=== PATIENT | male | born 1995 | race Caucasian/White ===

== ENCOUNTER 2021-06-02 21:19 | Emergency (ER) | payer OTHER ==
[~2021-06-02] VITALS: Ht 175 cm; Wt 89.4 kg
--- OUTSIDE RECORDS SUMMARY | 2021-06-02 21:25 | XMS REPORT | Clinical Summary ---
Author Author [facility] Organization [facility] Address Unknown Phone Unavailable Care Team Providers Care Horse Doctor Name Role Phone No Pcp, Na PCP Unavailable Source Comments Some departments are not documenting in the electronic medical record. If you d o not see the information that you expected, contact Release of Information in [facility] Information Management department at [phone] for further assistan ce in locating additional records.[facility] Allergies No known active allergies Medications End Date Status Medication Sig Dispensed Refills Start Date Active oxyCODONE/acetaminophen Take one 15 tablet 0 (PERCOCET; ENDOCET; tablet by 8 ROXICET) 5/325 mg tablet mouth every 4 hours as needed for Pain Active ondansetron (ZOFRAN) 4 mg Take one 15 tablet 0 tablet tablet by 8 mouth every 8 hours as needed for Nausea. Active Problems Not on file Social History Date Tobacco Use Types Packs/Day Years Used Never Assessed Sex Assigned at Date Recorded Not on file Last Filed Vital Signs Reading Time Taken Comments Vital Sign 131/73 05/03/2018 11:02 PM [employer] Blood Pressure - - Pulse 36.6 C (97.8 F) 05/03/2018 5:34 PM [employer] Temperature - - Respiratory Rate 100% 05/03/2018 11:02 PM [employer] Oxygen Saturation - - Inhaled Oxygen Concentration 81.6 kg (180 lb) 05/03/2018 5:34 PM [employer] Weight 175.3 cm (5' 9") 05/03/2018 5:34 PM [employer] Height 26.58 05/03/2018 5:34 PM [employer] Body Mass Index Plan of Treatment Health Maintenance Due Date Last Done Comments HPV VACCINES (1 - Male 2008 2-dose series) HIV SCREENING 2012 DTAP/TDAP VACCINES (1 - 08/15/2015 Tdap) HEPATITIS C SCREENING 08/15/2015 PHYSICAL (COMPREHENSIVE) 08/15/2015 EXAM INFLUENZA VACCINE 12/20/2020 Results Not on filefrom Last 3 Months Insurance Type Payer Benefit Subscriber ID Effective Phone Address Plan / Dates Group PPO BCBS ED BCBS ED [id number] 2012-P [phone] [address] [facility] [id number] [place] [address] Advance Directives Patient Director Data Analytics Explanation Type Date Recorded Advance 05/03/2018 5:21 PM Directive/DPOA Care Teams Start Date End Date Horse Doctor Relationship Specialty 05/03/18 No Pcp, Na PCP - General
[2021-06-02 21:33] LABS: BILIRUBIN,URINE NEGATIVE (NEGATIVE); CLARITY,URINE CLEAR; COLOR,URINE YELLOW; GLUCOSE, URINE (UA) NEGATIVE (NEGATIVE); KETONES,URINE 2+ (NEGATIVE); LEUKOCYTE ESTERASE ,URINE NEGATIVE (NEGATIVE); NITRITE,URINE NEGATIVE (NEGATIVE); PROTEIN,URINE NEGATIVE (NEGATIVE)
[2021-06-02] MEDS ORDERED: morphine INJ 10 MG/ML 1ML (SYR OR VIAL) IVP STA (21:35)
--- NOTE | 2021-06-02 21:42 | ED Abdominal Pain ---
General Stated Complaint: NAUSEA,VOMITTING,LOWER RIGHT SIDE BACK PAIN Source of Information: Patient Exam Limitations: No Limitations History of Present Illness Date Seen by Provider: Jun 02, 2021 Time Seen by Provider: 21:25 Initial Comments Patient to the ER by private conveyance from home with chief complaint of pain in his right flank radiating down to his right groin since about 11:00 this morning. He tried taking some ibuprofen but vomited it back up. He feels nauseated. He does not have anything for nausea. 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 He used to follow-up with Dr. Wolf, nephrology at [facility]. 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 No fevers chills cough shortness o f air diarrhea. No known sick contacts. No other abdominal surgeries. His pain is constant, sharp and unrelenting. Worse with movement. No history of kidney stones. He has been told in the past on imaging he had some sludge in his kidneys and has never had interstitial nephritis mentioned. He knows he has a history of kidney disease but cannot quantify it. He does not have a primary care provider and does not take any medicines routinely. Allergies and Home Medications Allergies Coded Allergies: No Known Drug Allergies (Unverified , 06/02/21) Patient Home Medication List Home Medication List Reviewed: Yes Cephalexin (Cephalexin) 500 Mg Tablet, 500 MG PO BID Prescribed by: ARIEL LUTHER on 06/02/212304 Hydrocodone/Acetaminophen (Hydrocodone-Acetamin 5-325 mg) 1 Each Tablet, 1-2 TAB PO Q4H PRN for PAIN-MODERATE (5-7) Prescribed by: ARIEL LUTHER on 06/02/212304 Ondansetron (Ondansetron Odt) 4 Mg Tab.rapdis, 4 MG PO Q6H PRN for NAUSEA/VOMITING Prescribed by: ARIEL LUTHER on 06/02/212304 Review of Systems Review of Systems Constitutional: No chills, No diaphoresis EENTM: No Blurred Vision, No Double Vision Respiratory: Denies Cough, Denies Shortness of Air Cardiovascular: Denies Chest Pain, Denies Lightheadedness Gastrointestinal: See HPI, Abdominal Pain; Denies Constipated, Denies Diarrhea; Nausea, Poor Fluid Intake, Vomiting Genitourinary: Denies Burning, Denies Discharge, Denies Drainage; Flank Pain (r) Musculoskeletal: back pain (Right flank); No joint pain, No neck pain All Other Systems Reviewed Negative Unless Noted: Yes Past Nvzfeot-Dyievz-Gepfsj Hx Patient Social History Tobacco Use?: No Use of E-Cig and/or Vaping dev: No Substance use?: No Physical Exam Vital Signs Vital Signs - First Documented 06/02/21 21:25 Temp 36.7 Pulse 69 Resp 17 B/P (MAP) 159/89 (112) Pulse Ox 98 O2 Delivery Room Air Capillary Refill : Height/Weight/BMI Height: '" Weight: lbs. oz. kg; BMI Method: General Appearance: WD/WN, mild distress HEENT: PERRL/EOMI, TMs normal, pharynx normal Neck: full range of motion, supple, normal inspection Respiratory: lungs clear, normal breath sounds, no respiratory distress, no accessory muscle use Cardiovascular: normal peripheral pulses, regular rate, rhythm Peripheral Pulses: 2+ Radial Pulses (R), 2+ Radial Pulses (L) Gastrointestinal: normal bowel sounds, soft, no organomegaly, tenderness (Right groin with some rebound tenderness but no Rovsing sign, heeltap or other mesenteric signs) Back: normal inspection, no vertebral tenderness, CVA tenderness (R) (Tenderness to percussion over right costovertebral angle) Neurologic/Psychiatric: alert, normal mood/affect, oriented x 3 Skin: normal color, warm/dry Progress/Results/Core Measures Results/Orders Lab Results Laboratory Tests Test 06/02/21 21:25 06/02/21 21:34 Range/Units Urine Color YELLOW Urine Clarity CLEAR Urine pH 6.0 5-9 Urine Specific [place] >=1.030 1.016-1.022 Urine Protein NEGATIVE NEGATIVE Urine Glucose (UA) NEGATIVE NEGATIVE Urine Ketones 2+ H NEGATIVE Urine Nitrite NEGATIVE NEGATIVE Urine Bilirubin NEGATIVE NEGATIVE Urine Urobilinogen 0.2 < = 1.0 MG/DL Urine Leukocyte Esterase NEGATIVE NEGATIVE Urine RBC (Auto) 2+ H NEGATIVE Urine RBC 0-2 /HPF Urine WBC RARE /HPF Urine Squamous Epithelial Cells NONE /HPF Urine Crystals NONE /LPF Urine Bacteria NEGATIVE /HPF Urine Casts NONE /LPF Urine Mucus SMALL H /LPF Urine Culture Indicated NO White Blood Count 14.6 H 4.3-11.0 10^3/uL Red Blood Count 4.95 4.30-5.52 10^6/uL Hemoglobin 14.5 13.3-17.7 g/dL Hematocrit 43 40-54 % Mean Corpuscular Volume 87 80-99 fL Mean Corpuscular Hemoglobin 29 25-34 pg Mean Corpuscular Hemoglobin Concent 34 32-36 g/dL Red Cell Distribution Width 12.0 10.0-14.5 % Platelet Count 234 130-400 10^3/uL Mean Platelet Volume 9.7 9.0-12.2 fL Immature Granulocyte % (Auto) 0 % Neutrophils (%) (Auto) 81 H 42-75 % Lymphocytes (%) (Auto) 11 L 12-44 % Monocytes (%) (Auto) 6 0-12 % Eosinophils (%) (Auto) 1 0-10 % Basophils (%) (Auto) 0 0-10 % Neutrophils # (Auto) 11.9 H 1.8-7.8 X 10^3 Lymphocytes # (Auto) 1.7 1.0-4.0 X 10^3 Monocytes # (Auto) 0.9 0.0-1.0 X 10^3 Eosinophils # (Auto) 0.1 0.0-0.3 10^3/uL Basophils # (Auto) 0.0 0.0-0.1 10^3/uL Immature Granulocyte # (Auto) 0.0 0.0-0.1 10^3/uL Neutrophils % (Manual) 75 % Lymphocytes % (Manual) 14 % Monocytes % (Manual) 9 % Eosinophils % (Manual) 0 % Basophils % (Manual) 0 % Band Neutrophils 2 % Sodium Level 136 135-145 MMOL/L Potassium Level 4.0 3.6-5.0 MMOL/L Chloride Level 100 98-107 MMOL/L Carbon Dioxide Level 23 21-32 MMOL/L Anion Gap 13 5-14 MMOL/L Blood Urea Nitrogen 14 7-18 MG/DL Creatinine 1.23 0.60-1.30 MG/DL Estimat Glomerular Filtration Rate 73 BUN/Creatinine Ratio 11 Glucose Level 98 70-105 MG/DL Calcium Level 9.1 8.5-10.1 MG/DL Corrected Calcium 8.5-10.1 MG/DL Magnesium Level 2.0 1.6-2.4 MG/DL Total Bilirubin 0.7 0.1-1.0 MG/DL Aspartate Amino Transf (AST/SGOT) 20 5-34 U/L Alanine Aminotransferase (ALT/SGPT) 16 0-55 U/L Alkaline Phosphatase 40 40-136 U/L C-Reactive Protein < 0.30 <0.50 MG/DL Total Protein 6.7 6.4-8.2 GM/DL Albumin 4.7 H 3.2-4.5 GM/DL My Orders Orders - ARIEL LUTHER Ua Culture If Indicated (06/02/21 21:26) Cbc With Automated Diff (06/02/21 21:34) Comprehensive Metabolic Panel (06/02/21 21:34) Crp Fs (06/02/21 21:34) Ct Abdomen/Pelvis W (06/02/21 21:34) Ondansetron Injection (Zofran Injectio (06/02/21 21:45) Morphine Injection (Morphine Injection (06/02/21 21:35) Ed Iv/Invasive Line Start (06/02/21 21:35) Ns Iv 1000 Ml (Sodium Chloride 0.9%) (06/02/21 21:45) Magnesium (06/02/21 21:35) Iohexol Injection (Omnipaque 350 Mg/Ml 1 (06/02/21 21:45) Received Contrast (Hold Metformin- Contr (06/02/21 21:45) Sodium Chloride Flush (Catheter Flush Sy (06/02/21 21:45) Ns (Ivpb) (Sodium Chloride 0.9% Ivpb Bag (06/02/21 21:45) Manual Differential (06/02/21 21:34) Ceftriaxone 1 Gm Pre-Mix (Rocephin 1 Gm (06/02/21 23:15) Abdomen (Kub) 1 View (06/02/21 23:01) Rx-Hydrocodone/Apap 5-325 Mg (Rx-Vicodin (06/02/21 23:15) Medications Given in ED Current Medications Medications Dose Ordered Sig/Tracy Route Start Time Stop Time Status Last Admin Dose Admin Acetaminophen/ Hydrocodone Bitart 1 ea Q4H PRN PO 06/02/21 23:15 06/02/21 23:45 DC 06/02/21 23:25 1 EA Ceftriaxone Sodium/Dextrose 50 ml @ 100 mls/hr ONCE ONCE IV 06/02/21 23:15 06/02/21 23:45 DC 06/02/21 23:14 100 MLS/HR Iohexol 100 ml ONCE ONCE IV 06/02/21 21:45 06/02/21 22:03 DC 06/02/21 22:24 100 ML Ondansetron HCl 8 mg ONCE ONCE IVP 06/02/21 21:45 06/02/21 21:46 DC 06/02/21 21:42 8 MG Sodium Chloride 10 ml NEEDED PRN IV 06/02/21 21:45 06/02/21 23:45 DC 06/02/21 22:24 10 ML Sodium Chloride 100 ml ONCE ONCE IV 06/02/21 21:45 06/02/21 22:03 DC 06/02/21 22:24 80 ML Vital Signs/I&O 06/02/21 06/02/21 06/02/21 21:25 22:25 23:43 Temp 36.7 Pulse 69 81 73 Resp 17 15 17 B/P (MAP) 159/89 (112) 152/75 142/92 Pulse Ox 98 100 98 O2 Delivery Room Air Room Air Room Air Progress Progress Note #1: Time: 21:42 Progress Note 8 of Zofran, 2 of morphine and a liter of fluids. If we can obtain a CT with IV contrast to observe his ureters and kidney that would be helpful. This would also help us rule out appendicitis. Patient has not been here before to compare any labs or imaging. Progress Note #2: Time: 22:55 Progress Note Patient's nausea is gone. His pain is down to a 5 out of 10 which is a significant decrease. Vital signs are still aseptic. Plan to give him a gram of Rocephin based on his elevated white count with a left shift and put him on Keflex for a week. We will have him follow-up with Dr. Bennett this week or early next week to discuss the source of his pain whether that stone seen in the bladder is the problem or if there is some other obstruction to be found in his right ureter. We will send him home with some hydrocodone let him have a dose before he leaves and make sure his pain is under good control before he goes. Diagnostic Imaging Diagonstic Imaging: CT Plain Films/CT/US/NM/MRI: abdomen, pelvis Comments [facility] [place], [place] NAME: HELEN REIS [facility] REC#: [id number] PT STATUS: REG ER : 1995 PHYSICIAN: ARIEL LUTHER MD ADMIT DATE: 06/02/21/ER FS Draft Date of Exam:06/02/21 CT ABDOMEN/PELVIS W PROCEDURE: CT abdomen and pelvis with contrast. TECHNIQUE: Multiple contiguous axial images were obtained through the abdomen and pelvis after administration of intravenous contrast. Auto Exposure Controls were utilized during the CT exam to meet ALARA standards for radiation dose reduction. All CT scans use one or more of the following dose optimizing techniques: automated exposure control, MA and/or KvP adjustment based on patient size and exam type or iterative reconstruction. INDICATION: Right flank and right lower quadrant abdominal pain. Nausea and vomiting. COMPARISON: None. FINDINGS: Included portions of the lung bases are clear. CT ABDOMEN: There is severe right-sided hydroureteronephrosis. No renal or ureteral calculi are seen on either side. However, there is calcification within the gravity dependent portion of the urinary bladder on the left. This measures approximately 5 x 10 mm (image 83, series 3 and image 100, series 5). No renal masses are seen on either side. The adrenal glands, spleen, pancreas and liver have a normal CT appearance. There is no loculated fluid collection, free fluid or free air within the abdomen. No abnormal mesenteric or retroperitoneal adenopathy is seen. Normal appendix cannot be adequately identified, but there is no pericecal inflammation. Small bowel loops are nondistended. Osseous structures show no acute abnormality. CT PELVIS: Again, there is a large calculus within the urinary bladder and severe distention of the distal right ureter. There is no loculated fluid collection, free fluid or free air within the pelvis. No abnormal lymph nodes are identified. Osseous structures show no acute abnormalities. IMPRESSION: Severe right-sided hydroureteronephrosis. Although no calculi are seen within the right renal pelvis or ureter, there is a large calculus within the urinary bladder. Findings could be on the basis of recent passage of ureteral stone. Short interval sonographic follow-up is recommended. Alternatively, correlation with renal Lasix scan could be performed to assess for residual underlying obstruction. This could be performed on a nonemergent basis. Dictated on workstation # [id number] Dict: 06/02/217 Trans: 06/02/21 223 [facility] [id number] Interpreted by: SUHAIL LEUNG MD Electronically signed by: Reviewed: Reviewed by Me Diagonstic Imaging: Xray Plain Films/CT/US/NM/MRI: abdomen, pelvis Comments [facility] [place] [place] NAME: HELEN REIS [facility] REC#: [id number] PT STATUS: DEP ER : 1995 PHYSICIAN: ARIEL LUTHER MD ADMIT DATE: 06/02/21/ER FS Draft Date of Exam:06/02/21 ABDOMEN (KUB) 1 VIEW INDICATION: Bladder calculus. Right-sided hydroureteronephrosis. COMPARISON: CT from earlier the same day FINDINGS: Two frontal radiographic views of the abdomen and pelvis were obtained. There is concentrated contrast within the urinary bladder. As such, urinary bladder calculus seen on previous CT is obscured. Contrast is also seen within the nondistended left renal pelvis and calyces. There is delayed clearance of contrast from the right renal parenchyma. This corresponds to obstruction seen on previous CT. Small bowel loops are nondistended. No unexpected radiopaque foreign bodies are seen. IMPRESSION: 1. Delayed clearance of contrast from the right kidney consistent with obstruction seen on previous CT. 2. Bladder calculus is obscured by excreted contrast in the urinary bladder. Dictated on workstation # [id number] Dict: 06/02/21 2338 Trans: 06/02/21 2345 [facility] [id number] Interpreted by: SUHAIL LEUNG MD Electronically signed by: Reviewed: Reviewed by Me Departure Impression Primary Impression: Calculus, urinary bladder Additional Impressions: Hydronephrosis of right kidney Hydroureter, right Disposition: 01 HOME, SELF-CARE Condition: Improved Departure-Patient Inst. Decision time for Depature: 22:57 Referrals: NO,LOCAL PHYSICIAN (PCP) Primary Care Physician KATELYNN BENNETT MD Patient Instructions: Kidney Stone, Adult ED, Hydronephrosis, Adult (DC), Kidney Stones (DC) Add. Discharge Instructions: Strain your urine to see if you can catch the stone if it passes. Hydrocodone 1 to 2 tablets every 4 hours as necessary to control pain. Hydrocodone will cause drowsiness and should not be mixed with alcohol. Hydrocodone will cause constipation and you should use MiraLAX, Colace or similar laxatives to keep having regular bowel movements. Ondansetron 1 tablet every 6 hours under the tongue as necessary for nausea and or vomiting. Limit your use of ibuprofen. 400 mg every 8 hours as necessary for breakthrough pain despite other medications. Keflex 500 mg twice a day for the next 7 days. Probiotics 1 tab twice a day for the next 7 days to prevent side effects from antibiotics such as diarrhea. Drink lots of fluids. Call Dr. Bennett, urology in the morning after 8 AM and request a follow-up appointment this week or next. The stone in your bladder may need to be removed by scope. You and your urologist will also need to explore whether there is some other acute cause of your problems today. I would invite you to return to the ER if your symptoms are not controlled by the medications or you have other worrisome concerns. Scripts Cephalexin (Cephalexin) 500 Mg Tablet 500 MG PO BID for 7 Days, #14 TAB 0 Refills Prov: ARIEL LUTHER 06/02/21 Ondansetron (Ondansetron Odt) 4 Mg Tab.rapdis 4 MG PO Q6H PRN for NAUSEA/VOMITING, #10 TAB 0 Refills Prov: ARIEL LUTHER 06/02/21 Hydrocodone/Acetaminophen (Hydrocodone-Acetamin 5-325 mg) 1 Each Tablet 1-2 TAB PO Q4H PRN for PAIN-MODERATE (5-7) for 5 Days, #22 TAB 0 Refills Prov: ARIEL LUTHER 06/02/21 Work/School Note: Work Release Form Date Seen in the Emergency Department: Jun 02, 2021 Return to Work: Jun 04, 2021 Restrictions: No Restrictions Copy Copies To 1: KATELYNN BENNETT MD, TITUS J Jun 02, 2021 21:42
[2021-06-02 21:45] LABS: EOSINOPHILS % (AUTO) 1 % (0-10); HEMATOCRIT 43 % (40-54); HEMOGLOBIN 14.5 g/dL (13.3-17.7); LYMPHOCYTES % (AUTO) 11 % (12-44); MEAN CORPUSCULAR HEMOGLOBIN 29 pg (25-34); MEAN CORPUSCULAR HGB CONC 34 g/dL (32-36); MEAN CORPUSCULAR VOLUME 87 fL (80-99); MEAN PLATELET VOLUME 9.7 fL (9.0-12.2); MONOCYTES % (AUTO) 6 % (0-12); NEUTROPHILS % (AUTO) 81 % (42-75); PLATELET COUNT 234 10^3/uL (130-400); WHITE BLOOD COUNT 14.6 10^3/uL (4.3-11.0)
[2021-06-02] MEDS ORDERED: NS IV 1000 ML 1,000 ML IV SCH (21:45)
[2021-06-02] MEDS ORDERED: IOHEXOL 350 MG/ML 100 ML (OMNIPAQUE 350) VIAL IV ONE (21:45)
[2021-06-02] MEDS ORDERED: NS 100 ML (IVPB) BAG IV ONE (21:45)
[2021-06-02] MEDS ORDERED: HOLD METFORMIN - RECEIVED CONTRAST 20 ML VIAL IV SCH (21:45)
[2021-06-02] MEDS ORDERED: CATHETER FLUSH 10 ML SYR IV PRN (21:45)
[2021-06-02] MEDS ORDERED: ONDANSETRON 4 MG/2 ML (SDV) Z0FRAN IVP ONE (21:45)
[2021-06-02 21:46] LABS: BASOPHILS % (AUTO) 0 % (0-10); EOSINOPHILS # (AUTO) 0.1 10^3/uL (0.0-0.3); LYMPHOCYTES # (AUTO) 1.7 X 10^3 (1.0-4.0); MONOCYTES # (AUTO) 0.9 X 10^3 (0.0-1.0); NEUTROPHILS # (AUTO) 11.9 X 10^3 (1.8-7.8)
[2021-06-02 21:47] LABS: BACTERIA,URINE NEGATIVE /HPF; RBC,URINE 0-2 /HPF; WBC,URINE RARE /HPF
[2021-06-02 22:02] LABS: BAND NEUTROPHILS 2 %; BASOPHILS % (MANUAL) 0 %; EOSINOPHILS % (MANUAL) 0 %; LYMPHOCYTES % (MANUAL) 14 %; MONOCYTES % (MANUAL) 9 %; NEUTROPHILS % (MANUAL) 75 %
[2021-06-02 22:05] LABS: SODIUM 136 MMOL/L (135-145)
[2021-06-02 22:06] LABS: ALANINE AMINOTRANSFERASE 16 U/L (0-55); ALBUMIN 4.7 GM/DL (3.2-4.5); ALKALINE PHOSPHATASE 40 U/L (40-136); BILIRUBIN,TOTAL 0.7 MG/DL (0.1-1.0); BUN/CREATININE RATIO 11; CALCIUM 9.1 MG/DL (8.5-10.1); CARBON DIOXIDE 23 MMOL/L (21-32); CHLORIDE 100 MMOL/L (98-107); CREATININE SERUM 1.23 MG/DL (0.60-1.30); GFR ESTIMATED 73; GLUCOSE 98 MG/DL (70-105); TOTAL PROTEIN 6.7 GM/DL (6.4-8.2)
--- NOTE | 2021-06-02 22:36 | Diagnostic Imaging Report ---
PROCEDURE: CT abdomen and pelvis with contrast. TECHNIQUE: Multiple contiguous axial images were obtained through the abdomen and pelvis after administration of intravenous contrast. Auto Exposure Controls were utilized during the CT exam to meet ALARA standards for radiation dose reduction. All CT scans use one or more of the following dose optimizing techniques: automated exposure control, MA and/or KvP adjustment based on patient size and exam type or iterative reconstruction. INDICATION: Right flank and right lower quadrant abdominal pain. Nausea and vomiting. COMPARISON: None. FINDINGS: Included portions of the lung bases are clear. CT ABDOMEN: There is severe right-sided hydroureteronephrosis. No renal or ureteral calculi are seen on either side. However, there is calcification within the gravity dependent portion of the urinary bladder on the left. This measures approximately 5 x 10 mm (image 83, series 3 and image 100, series 5). No renal masses are seen on either side. The adrenal glands, spleen, pancreas and liver have a normal CT appearance. There is no loculated fluid collection, free fluid or free air within the abdomen. No abnormal mesenteric or retroperitoneal adenopathy is seen. Normal appendix cannot be adequately identified, but there is no pericecal inflammation. Small bowel loops are nondistended. Osseous structures show no acute abnormality. CT PELVIS: Again, there is a large calculus within the urinary bladder and severe distention of the distal right ureter. There is no loculated fluid collection, free fluid or free air within the pelvis. No abnormal lymph nodes are identified. Osseous structures show no acute abnormalities. IMPRESSION: Severe right-sided hydroureteronephrosis. Although no calculi are seen within the right renal pelvis or ureter, there is a large calculus within the urinary bladder. Findings could be on the basis of recent passage of ureteral stone. Short interval sonographic follow-up is recommended. Alternatively, correlation with renal Lasix scan could be performed to assess for residual underlying obstruction. This could be performed on a nonemergent basis. Dictated by: Dictated on workstation # [id number]
[2021-06-02] MEDS ORDERED: ONDA4TAB11 PO (23:05)
[2021-06-02] MEDS ORDERED: ACHD5005 PO (23:05)
[2021-06-02] MEDS ORDERED: CEPH500T PO (23:05)
[2021-06-02] MEDS ORDERED: cefTRIAXone 1 GM PRE-MIX 50 ML IV ONE (23:15)
[2021-06-02 23:43] VITALS: BP 142/92
--- NOTE | 2021-06-02 23:46 | Diagnostic Imaging Report ---
INDICATION: Bladder calculus. Right-sided hydroureteronephrosis. COMPARISON: CT from earlier the same day FINDINGS: Two frontal radiographic views of the abdomen and pelvis were obtained. There is concentrated contrast within the urinary bladder. As such, urinary bladder calculus seen on previous CT is obscured. Contrast is also seen within the nondistended left renal pelvis and calyces. There is delayed clearance of contrast from the right renal parenchyma. This corresponds to obstruction seen on previous CT. Small bowel loops are nondistended. No unexpected radiopaque foreign bodies are seen. IMPRESSION: 1. Delayed clearance of contrast from the right kidney consistent with obstruction seen on previous CT. 2. Bladder calculus is obscured by excreted contrast in the urinary bladder. Dictated by: Dictated on workstation # [id number]
== END 2021-06-02 23:43 | disposition home or self-care (01) ==
LOC: ER FS 21:22
DX: N13.2 Hydronephrosis with renal and ureteral calculous obstruction (principal); N13.4 Hydroureter
CPT/HCPCS: 36415; 74018; 74177; 80053; 81000; 83735; 85007; 85027; 86141